=== PATIENT | male | born 1975 | race Caucasian/White ===

== ENCOUNTER 2016-11-29 19:18 | Emergency (ER) | payer OTHER ==
[2016-11-29 19:34] VITALS: BP 124/65; PULSE 68; RESP 18; TEMP 98; O2SAT 97
--- NOTE | 2016-11-29 19:54 | UCPHY ---
H & P Patient Type: Established Chief Complaint Nursing Narrative: laceration to lt middle and thumb with sticker al this pm HPI/ROS: HPI CHIEF COMPLAINT: Left thumb laceration, left 3rd digit laceration HISTORY OF PRESENT ILLNESS: Patient very pleasant 41-year-old male, denies any significant medical or surgical history does not take any daily medications presents to urgent care with 2 lacerations to his left hand 1 on the pad of his thumb and 1 on the pad of his middle finger. Sustained his while trying to remove stickers with a sticker removal knife it slipped and he cut both of his fingers he could not get the bleeding stops we decided come here for evaluation. Upon evaluation the left thumb pad laceration is clean, and not gaping and will not need any repair, the middle finger laceration pad of the middle finger is 3 cm horizontal length gaping will need a suture. Tells me his tetanus shot is up -to-date. Right-hand dominant. Past Medical History: Denies medical history Past Surgical History: Denies surgical history Social History: denies use of drugs alcohol tobacco products Family History: Noncontributory ROS REVIEW OF SYSTEMS: A comprehensive 10 point review of systems is otherwise negative aside from elements mentioned in the history of present illness. Exam Constitutional triage nursing summary reviewed, vital signs reviewed, awake/ alert. Eyes normal conjunctivae and sclera, EOMI, PERRLA. HENT normal inspection, atraumatic, moist mucus membranes, no epistaxis, neck supple/ no meningismus, no raccoon eyes. Respiratory clear to auscultation bilaterally, normal breath sounds, no respiratory distress, no wheezing. Cardiovascular rate normal, regular rhythm, no murmur, no edema, distal pulses normal. Gastrointestinal soft, non-tender, no rebound, no guarding, normal bowel sounds, no distension, no pulsatile mass. Genitourinary no CVA tenderness. Musculoskeletal no midline vertebral tenderness, full range of motion, no calf swelling, no tenderness of extremities, no meningismus, good pulses, neurovascularly intact. Skin left hand: Laceration present across the pad of the thumb, laceration present across the pad of the middle finger. The laceration located on the thumb does not need repaired clean and closely approximated, the laceration is 3 cm on the middle finger pad that is slightly gaping and needs repair. pink, warm, & dry, no rash Neurologic awake, alert and oriented x 3, AAOx3, moves all 4 extremities equally, motor intact, sensory intact, CN II-XII intact, normal cerebellar, normal vision, normal speech. Psychiatric normal mood/affect. Heme/Lymph/Immune no lymphadenopathy. Differential Diagnosis: Includes but is not limited to in a particular order, finger laceration, soft tissue injury, contusion. Medical Decision Making: Patient will need the left index finger laceration repair.The wound will need to be cleaned. Re-evaluation: Laceration Repair Procedure: Verbal Consent was obtained, Under sterile conditions, The patient had lidocaine with/out epinephrine used approximately 3ccs to local anesthetize the left middle finger pad 3 cm horizontal Laceration. The wound was copiously irrigated with sterile fluid, the wound was explored for foreign bodies there were none visualized, the wound was explored with a sterile glove to the base. There are no deep structures involved, including no arterial injury. 1 6.0 prolene interrupted Sutures were placed in this patient's laceration. He had good close approximation of the wound edges. He Tolerated this well. Patient understands have sutures removed in 10 days. Watch for signs of infection. Source: Patient - Personal History Tetanus Vaccine Date: 2013 - Medical/Surgical History Hx Asthma: Yes Other PMH: denies - Family History Significant Family History: No pertinent family hx - Social History Smoking Status: Never smoked Constitutional: Initial Vital Signs Temperature (C) 36.6 C 11/29/16 19:32 Heart Rate 68 11/29/16 19:32 Respiratory Rate 18 11/29/16 19:32 Blood Pressure 124/65 H 11/29/16 19:32 O2 Sat (%) 97 11/29/16 19:32 O2 Delivery Mode Room Air Allergies/Adverse Reactions: Penicillins Allergy (Verified 08/16/16 09:31) Home Medications: Medication Instructions Recorded NK [No Known Home Meds] 08/16/16 Departure - Departure Disposition: Home, Routine, Self-Care Clinical Impression: Laceration of finger Qualifiers: Encounter type: initial encounter Qualifier Code: (S61.219A) Laceration without foreign body of unspecified finger without damage to nail, initial encounter Condition: Good Instructions: Laceration (ED), Care For Your Stitches (ED) Additional Instructions: 1. please keep your wound clean dry and intact. 2. You will need her sutures removed in 10 days. 3. Watch for signs of infection. Referrals: Larissa Iyer MD [Primary Care Provider] - As per Instructions - PQRS PQRS Measurement: n/a
== END 2016-11-29 20:32 | disposition home or self-care (01) ==
LOC: CED 19:18
PROC: 0HQGXZZ Repair Left Hand Skin, External Approach (ICD-10-PCS; principal; 2016-11-29)
DX: S61.213A Laceration without foreign body of left middle finger without damage to nail, initial encounter (principal); S61.012A Laceration without foreign body of left thumb without damage to nail, initial encounter; W27.0XXA Contact with workbench tool, initial encounter; Y93.89 Activity, other specified
CPT/HCPCS: G0463-PO